=== PATIENT | female | born 1955 | race Caucasian/White ===

== ENCOUNTER 2017-07-09 14:47 | Emergency (ER) | payer OTHER ==
[2017-07-09] MEDS ORDERED: KETOROLAC 30 MG/ML INJ ONE (15:54)
[2017-07-09] MEDS ORDERED: NA CHLORIDE 0.9% 1,000 ML ONE (15:55)
[2017-07-09 16:20] LABS: Absolute Lymphocytes (CBC) 1.1 K/uL (0.7-4.9); Absolute Monocytes 0.6 K/uL (0.1-1.3); Absolute Neutrophil 6.5 K/uL (1.8-8.0); Basophils % 0.5 % (0-1.3); Eosinophils % 1.6 % (0-4.4); Hematocrit 38.8 % (36.0-45.0); Lymphocytes % 13.3 % (15.3-44.8); MCH 32.1 pg (27.0-35.0); MCV 94.4 fL (80-100); MPV 9.4 fL (7.6-11.3); Monocytes % 7.7 % (3.3-12.3); RBC Red Blood Cell Count 4.11 M/uL (3.86-4.86)
[2017-07-09 16:27] LABS: Bicarbonate 27 mEq/L (21-31); Glucose Level 110 mg/dL (65-120); Lipase 20 U/L (22-51); Potassium 3.5 mEq/L (3.6-5.0); Sodium Level 141 mEq/L (135-145)
[2017-07-09 16:33] LABS: ALT/SGPT 39 IU/L (10-60); AST/SGOT 63 IU/L (10-42); Albumin 4.6 g/dL (3.2-5.5); Alkaline Phosphatase 65 IU/L (42-121); BUN Blood Urea Nitrogen 21 mg/dL (6-20); Bilirubin Direct < 0.1 mg/dL (0-0.2); Bilirubin Total 0.4 mg/dL (0.3-1.2); Protein, Total 7.5 g/dL (6.0-8.3)
--- NOTE | 2017-07-09 17:01 | EKG ---
Test Date: 2017-07-09 Test Time: 15:10:27 Fire Controlman: SAAD MEASUREMENT RESULTS: Intervals: Rate: 87 SD: 170 QRSD: 88 QT: 340 QTc: 409 [place]: P: 59 SD: 170 QRS: 52 T: 32 INTERPRETIVE STATEMENTS: Normal sinus rhythm Nonspecific T wave abnormality Abnormal ECG No previous ECG available for comparison Electronically Signed On 07-09-17 17:01:26 CDT by Valdo Razo
--- NOTE | 2017-07-09 17:15 | RAD REPORT ---
EXAM DESCRIPTION: CT - Head C Spine Santiago Lomas - 07/09/2017 4:57 pm CLINICAL HISTORY: Trauma, head and neck injury. Chest, abdomen and pelvis pain. COMPARISON: None. TECHNIQUE: CT head without contrast. CT cervical spine without contrast with coronal and sagittal reformatted images. CT chest, abdomen and pelvis with contrast with coronal and sagittal reformatted images of the spine. All CT scans are performed using dose optimization technique as appropriate and may include automated exposure control or mA/KV adjustment according to patient size. FINDINGS: CT HEAD WITHOUT CONTRAST: No intracranial hemorrhage, hydrocephalus or extra-axial fluid collection. No areas of brain edema o r midline shift. The paranasal sinuses and mastoids are clear. The calvarium is intact. CT CERVICAL SPINE WITHOUT CONTRAST: No fracture or subluxation. 2 mm anterolisthesis of C3 on 4 and C4 on 5. Prominent degenerative spond ylosis with endplate osteophytes at C5-6. The prevertebral soft tissues are normal in thickness. CT CHEST, ABDOMEN, PELVIS WITH CONTRAST: The lungs are mildly emphysematous but clear.No pneumothorax or pericardial/pleural fluid. No evidence of intra-abdominal visceral injury, free fluid or free air. Sigmoid diverticulosis. Soft tissue bruising is present in the left buttock region. No fractures. Degenerative dextroscoliosis of the lumbar spine. IMPRESSION: Negative for acute traumatic findings.
[2017-07-09] MEDS ORDERED: POTASSIUM CL SA 10 MEQ TAB PO ONE (17:34)
--- NOTE | 2017-07-09 17:38 | EDPHYS ---
Physician Documentation [facility] Name: Latisha Fry Age: 61 yrs Sex: Female : 1955 Arrival Date: 07/09/2017 Time: 14:51 Bed 4 Private MD: ED Physician Eddi Fuentes HPI: 07/09 15:19 This 61 yrs old Female presents to ER via Ambulatory with complaints of Fall blu Injury. 15:19 Details of fall: The patient fell from a height, down approximately 10 stairs. Onset: blu The symptoms/episode began/occurred just prior to arrival. Associated injuries: The patient sustained injury to the head, neck injury, upper back injury, injury to the chest. Severity of symptoms: At their worst the symptoms were mild, in the emergency department the symptoms are unchanged. The patient has not experienced similar symptoms in the past. - Immunization history: Last tetanus immunization: - up to date. - Family history:: not pertinent. ROS: 15:19 Constitutional: Negative for fever, chills, and weight loss, Eyes: Negative for injury, blu pain, redness, and discharge, ENT: Negative for injury, pain, and discharge, Neck: Negative for injury, pain, and swelling, Cardiovascular: Negative for chest pain, palpitations, and edema, Respiratory: Negative for shortness of breath, cough, wheezing, and pleuritic chest pain, Abdomen/GI: Negative for abdominal pain, nausea, vomiting, diarrhea, and constipation, Back: Negative for injury and pain, : Negative for injury, bleeding, discharge, and swelling, Skin: Negative for injury, rash, and discoloration, Neuro: Negative for headache, weakness, numbness, tingling, and seizure, Psych: Negative for depression, anxiety, suicide ideation, homicidal ideation, and hallucinations, Allergy/Immunology: Negative for hives, rash, and allergies, Endocrine: Negative for neck swelling, polydipsia, polyuria, polyphagia, and marked weight changes, Hematologic/Lymphatic: Negative for swollen nodes, abnormal bleeding, and unusual bruising. 15:19 MS/extremity: Positive for abrasion, contusion. Exam: 15:19 Constitutional: This is a well developed, well nourished patient who is awake, alert, blu and in no acute distress. Head/Face: Normocephalic, atraumatic. Eyes: Pupils equal round and reactive to light, extra-ocular motions intact. Lids and lashes normal. Conjunctiva and sclera are non-icteric and not injected. Cornea within normal limits. Periorbital areas with no swelling, redness, or edema. ENT: Nares patent. No nasal discharge, no septal abnormalities noted. Tympanic membranes are normal and external auditory canals are clear. Oropharynx with no redness, swelling, or masses, exudates, or evidence of obstruction, uvula midline. Mucous membranes moist. Neck: Trachea midline, no thyromegaly or masses palpated, and no cervical lymphadenopathy. Supple, full range of motion without nuchal rigidity, or vertebral point tenderness. No Meningismus. Cardiovascular: Regular rate and rhythm with a normal S1 and S2. No gallops, murmurs, or rubs. Normal PMI, no JVD. No pulse deficits. Respiratory: Lungs have equal breath sounds bilaterally, clear to auscultation and percussion. No rales, rhonchi or wheezes noted. No increased work of breathing, no retractions or nasal flaring. Abdomen/GI: Soft, non-tender, with normal bowel sounds. No distension or tympany. No guarding or rebound. No evidence of tenderness throughout. Female : Normal external genitalia. Skin: Warm, dry with normal turgor. Normal color with no rashes, no lesions, and no evidence of cellulitis. Neuro: Awake and alert, GCS 15, oriented to person, place, time, and situation. Cranial nerves II-XII grossly intact. Motor strength 5/5 in all extremities. Sensory grossly intact. Cerebellar exam normal. Normal gait. Psych: Awake, alert, with orientation to person, place and time. Behavior, mood, and affect are within normal limits. 15:19 Chest/axilla: Inspection: normal, Palpation: tenderness, that is mild, of the left lateral posterior chest. 15:19 Respiratory: Exam negative for 15:19 Musculoskeletal/extremity: Extremities: abrasion, pain, ROM: intact in all extremities, full active range of motion, full passive range of motion, Circulation is intact in all extremities. Sensation intact. Compartment Syndrome exam of affected extremity: is normal. DVT Exam: No signs of deep vein thrombosis. no pain, no swelling, no tenderness, negative Homans' sign noted on exam, no appreciated bluish discoloration, no erythema, no increased warmth. Vital Signs: 15:01 BP 151 / 77; Pulse 96; Resp 20; Temp 97.9; Pulse Ox 96% on R/A; Weight 80.74 kg; Height aj 5 ft. 6 in. (167.64 cm); 15:30 BP 133 / 87; Pulse 89; Resp 16; Pulse Ox 99% ; jl7 16:23 BP 141 / 67; Pulse 71; Resp 16; Pulse Ox 99% ; jl7 15:01 Body Mass Index 28.73 (80.74 kg, 167.64 cm) aj Harmony Coma Score: 15:01 Eye Response: spontaneous(4). Verbal Response: oriented(5). Motor Response: obeys aj commands(6). Total: 15. Trauma Score (Adult): 15:01 Eye Response: spontaneous(1); Verbal Response: oriented(1); Motor Response: obeys aj commands(2); Systolic BP: > 89 mm Hg(4); Respiratory Rate: 10 to 29 per min(4); Annette Score: 15; Trauma Score: 12 MDM: 15:13 Patient medically screened. [facility] 15:22 Data reviewed: vital signs, nurses notes, lab test result(s), radiologic studies, CT [facility] scan, plain films. 07/09 15:18 Order name: Basic Metabolic Panel; Complete Time: 16:51 [facility] 07/09 15:18 Order name: CBC with Diff; Complete Time: 16:51 [facility] 07/09 15:18 Order name: Creatinine for Radiology; Complete Time: 16:51 [facility] 07/09 15:18 Order name: Type And Screen; Complete Time: 17:36 [facility] 07/09 15:18 Order name: LFT's; Complete Time: 16:51 [facility] 07/09 15:18 Order name: Lipase; Complete Time: 16:51 [facility] 07/09 15:18 Order name: XRAY Chest (1 view) [facility] 07/09 15:18 Order name: CT Traumagram (Head C Spine CAP W Con); Complete Time: 17:36 [facility] 07/09 15:19 Order name: Urine Culture [facility] 07/09 15:59 Order name: EKG Electrocardiogram EDSD 07/09 18:22 Order name: Urine Dipstick--Ancillary (enter results) 07/09 15:18 Order name: Labs collected and sent; Complete Time: 17:50 [facility] 07/09 15:18 Order name: Urine Dipstick-Ancillary (obtain specimen); Complete Time: 17:48 [facility] Administered Medications: 16:08 Drug: NS 0.9% 1000 ml Route: IV; Rate: 1 bolus; Site: right antecubital; 7 17:48 Follow up: IV Status: Completed infusion 7 16:10 Drug: TORadol 30 mg Route: IVP; Site: right antecubital; 7 17:48 Follow up: Response: No adverse reaction; Pain is decreased 7 17:35 Drug: Potassium Chloride 20 mEq Route: PO; 7 17:48 Follow up: Response: No adverse reaction [facility] Disposition: 07/09/17 17:37 Discharged to Home. Impression: Fall (on) (from) other stairs and steps, Contusion of left back wall of thorax, Contusion of thorax, Superficial injury of head, Strain of muscle, fascia and tendon at neck level, Hypokalemia. - Condition is Stable. - Discharge Instructions: Potassium Content of Foods, Head Injury, Adult, Fall Prevention and Home Safety, Thoracic Strain, Thoracic Strain, [id number], Cervical Sprain, Oyrf-ml-Udax, Head Injury, Adult, Whkk-se-Eduo, Hypokalemia. - Prescriptions for Ibuprofen 600 mg Oral Tablet - take 1 tablet by ORAL route every 8 hours As needed take with food; 21 tablet. Tylenol- Codeine #3 300-30 mg Oral Tablet - take 2 tablet by ORAL route every 6 hours As needed; 30 tablet. - Medication Reconciliation Form, Thank You Letter, Antibiotic Education, Prescription Opioid Use form. - Follow up: Private Physician; When: 2 - 3 days; Reason: Recheck today's complaints, Continuance of care, Re-evaluation by your physician. - Problem is new. - Symptoms have improved. Signatures: Dispatcher [employer] EDMS Taryn Saez RN RN aj Anderson, Corey, MD MD cha Williams, Irene, RN RN iw Gallardo, Ana ag Leal, Jahala, RN RN jl7 Corrections: (The following items were deleted from the chart) 17:59 17:37 07/09/2017 17:37 Discharged to Home. Impression: Fall (on) (from) other stairs iw and steps; Contusion of left back wall of thorax; Contusion of thorax; Superficial injury of head; Strain of muscle, fascia and tendon at neck level; Hypokalemia. Condition is Stable. Discharge Instructions: Head Injury, Adult, Fall Prevention and Home Safety, Thoracic Strain, Thoracic Strain, Ikzi-mv-Qufn, Cervical Sprain, Blgq-jg-Xpzd, Head Injury, Adult, Zspj-gz-Cvbm. Prescriptions for Ibuprofen 600 mg Oral Tablet - take 1 tablet by ORAL route every 8 hours As needed take with food; 21 tablet, Tylenol-Codeine #3 300-30 mg Oral Tablet - take 2 tablet by ORAL route every 6 hours As needed; 30 tablet. and Forms are Medication Reconciliation Form, Thank You Letter, Antibiotic Education, Prescription Opioid Use. Follow up: Private Physician; When: 2 - 3 days; Reason: Recheck today's complaints, Continuance of care, Re-evaluation by your physician. Problem is new. Symptoms have improved. [facility] 18:22 17:59 07/09/2017 17:37 Discharged to Home. Impression: Fall (on) (from) other stairs ag and steps; Contusion of left back wall of thorax; Contusion of thorax; Superficial injury of head; Strain of muscle, fascia and tendon at neck level; Hypokalemia. Condition is Stable. Discharge Instructions: Head Injury, Adult, Fall Prevention and Home Safety, Thoracic Strain, Thoracic Strain, Nziy-dp-Bdty, Cervical Sprain, Pxdy-ev-Tywq, Head Injury, Adult, Nwee-bl-Ikfa, Potassium Content of Foods, Hypokalemia. Prescriptions for Ibuprofen 600 mg Oral Tablet - take 1 tablet by ORAL route every 8 hours As needed take with food; 21 tablet, Tylenol-Codeine #3 300-30 mg Oral Tablet - take 2 tablet by ORAL route every 6 hours As needed; 30 tablet. and Forms are Medication Reconciliation Form, Thank You Letter, Antibiotic Education, Prescription Opioid Use. Follow up: Private Physician; When: 2 - 3 days; Reason: Recheck today's complaints, Continuance of care, Re-evaluation by your physician. Problem is new. Symptoms have improved. iw
--- NOTE | 2017-07-09 17:38 | ER ---
Nurse's Notes [facility] Name: Latisha Fry Age: 61 yrs Sex: Female : 1955 Arrival Date: 07/09/2017 Time: 14:51 Bed 4 Private MD: Diagnosis: Fall (on) (from) other stairs and steps;Contusion of left back wall of thorax;Contusion of thorax;Superficial injury of head;Strain of muscle, fascia and tendon at neck level;Hypokalemia Presentation: 07/09 15:01 Presenting complaint: Patient states: Reports falling 10 ft from pier onto sand at 0800 aj this AM. Patient reports back pain, lower abdominal pain, SOB that gradually increased since fall. Patient denies LOC. Care prior to arrival: None. Mechanism of Injury: Fall Pier approximately 10 feet. Trauma event details: Injury occurred in the [facility], Injury occurred: at home. Injury occurred: July 09, 2017 Injury occurred at: 08:00. 15:01 Acuity: BRENDAN 3 aj 15:01 Method Of Arrival: Ambulatory aj 15:05 Transition of care: patient was not received from another setting of care. Onset of aj symptoms was July 09, 2017. 17:58 Initial Sepsis Screen: Does the patient meet any 2 criteria? No. Patient's initial iw sepsis screen is negative. Does the patient have a suspected source of infection? No. Patient's initial sepsis screen is negative. Trauma Activation: Alert Physician: ED Physician; Name: ; Notified At: ; Arrived At: Physician: General Surgeon; Name: ; Notified At: ; Arrived At: Physician: Radiology; Name: ; Notified At: ; Arrived At: Physician: Respiratory; Name: ; Notified At: ; Arrived At: Physician: Lab; Name: ; Notified At: ; Arrived At: - Immunization history: Last tetanus immunization: - up to date. - Family history:: not pertinent. Screenin:15 Abuse screen: Denies threats or abuse. Denies injuries from another. Nutritional jl7 screening: No deficits noted. Tuberculosis screening: No symptoms or risk factors identified. 17:58 Fall Risk Fall in past 12 months (25 points). iw Primary Survey: 15:01 Breathing/Chest: Respiratory pattern: regular. Circulation: Skin color: pink, Skin aj temperature: warm, dry. Disability Alert. 15:15 Reassessment Airway Airway Patent Breathing/Chest Respiratory pattern Regular jl7 Respiratory effort Spontaneous Unlabored Breath sounds Clear Chest inspection Symmetrical Circulation Heart tones Present Disability Alert. Assessment: 15:01 General: Appears in no apparent distress. uncomfortable, Behavior is calm, cooperative, aj appropriate for age. Pain: Complains of pain in back and abdomen. Neuro: Level of Consciousness is awake, alert, obeys commands, Oriented to person, place, time, situation, Appropriate for age. Respiratory: Airway is patent Respiratory effort is even, unlabored, Respiratory pattern is regular, symmetrical. GI: Reports lower abdominal pain. Derm: Skin is intact, is healthy with good turgor, Skin is pink, warm \T\ dry. normal. Vital Signs: 15:01 BP 151 / 77; Pulse 96; Resp 20; Temp 97.9; Pulse Ox 96% on R/A; Weight 80.74 kg; Height aj 5 ft. 6 in. (167.64 cm); 15:30 BP 133 / 87; Pulse 89; Resp 16; Pulse Ox 99% ; jl7 16:23 BP 141 / 67; Pulse 71; Resp 16; Pulse Ox 99% ; jl7 15:01 Body Mass Index 28.73 (80.74 kg, 167.64 cm) aj [place] Coma Score: 15:01 Eye Response: spontaneous(4). Verbal Response: oriented(5). Motor Response: obeys aj commands(6). Total: 15. Trauma Score (Adult): 15:01 Eye Response: spontaneous(1); Verbal Response: oriented(1); Motor Response: obeys aj commands(2); Systolic BP: > 89 mm Hg(4); Respiratory Rate: 10 to 29 per min(4); [place] Score: 15; Trauma Score: 12 ED Course: 14:51 Patient arrived in ED. rg4 15:03 Triage completed. aj 15:08 Corie Strattno, ANDRES is Primary Nurse. jl7 15:13 Eddi Fuentes MD is Attending Physician. blu 15:15 Patient has correct armband on for positive identification. Placed in gown. Bed in low jl7 position. Call light in reach. Side rails up X 1. 15:15 Patient maintains SpO2 saturation greater than 95% on room air. jl7 15:21 Radiology exam delayed due to lab results not completed at this time. (BUN/Creatinine). nj 15:36 X-ray completed. Portable x-ray completed in exam room. Patient tolerated procedure kp1 well. 15:37 XRAY Chest (1 view) In Process Unspecified. EDMS 15:38 Radiology exam delayed due to lab results not completed at this time. (BUN/Creatinine). nj 16:08 Radiology exam delayed due to lab results not completed at this time. (BUN/Creatinine) nj IV insertion attempt and/or patient not having appropriate IV at this time. 16:[address] via stretcher. 16:57 CT Traumagram (Head C Spine CAP W Con) In Process Unspecified. EDMS 16:58 CT completed. Patient tolerated procedure well. Patient moved back from CT. 17:57 IV discontinued, intact, bleeding controlled, No redness/swelling at site. Pressure iw dressing applied. Thermoregulation: warm blanket given to patient. 17:57 No provider procedures requiring assistance completed. iw 17:58 IV discontinued, intact, bleeding controlled. iw Administered Medications: 16:08 Drug: NS 0.9% 1000 ml Route: IV; Rate: 1 bolus; Site: right antecubital; jl7 17:48 Follow up: IV Status: Completed infusion jl7 16:10 Drug: TORadol 30 mg Route: IVP; Site: right antecubital; jl7 17:48 Follow up: Response: No adverse reaction; Pain is decreased jl7 17:35 Drug: Potassium Chloride 20 mEq Route: PO; jl7 17:48 Follow up: Response: No adverse reaction jl7 Intake: 17:58 PO: 0ml; Total: 0ml. iw Outcome: 17:37 Discharge ordered by . blu 17:57 Discharged to home ambulatory. iw 17:57 Condition: good 17:57 Discharge instructions given to patient, family, Instructed on discharge instructions, follow up and referral plans. medication usage, Demonstrated understanding of instructions, follow-up care, medications, Prescriptions given X 2. 17:57 Patient's length of stay in the Emergency Department was greater than 2 hours. 17:59 Patient left the ED. iw 18:22 Patient left the ED. ag Signatures: Dispatcher [employer] EDMS Taryn Saez RN RN aj Anderson, Corey, MD MD cha Hagler, Ervin Nancy Lafleur RN RN Naldo, Chasidy Green4 Vitaliy Carbone Jahala, RN RN jl7 Beata Triplett kp1
[2017-07-09 18:26] LABS: Urine Blood TRACE (NEG); Urine Glucose NEGATIVE (NEG); Urine Protein NEGATIVE (NEG); Urine Specific Gravity <1.005 (1.005-1.030)
--- NOTE | 2017-07-09 18:33 | RAD REPORT ---
EXAM DESCRIPTION: Bashir Single View07/09/2017 3:38 pm CLINICAL HISTORY: Chest pain COMPARISON: none FINDINGS: The lungs appear clear of acute infiltrate. The heart is normal size IMPRESSION: No acute abnormalities displayed
== END 2017-07-09 18:22 | disposition home or self-care (01) ==
LOC: ER 14:47
DX: S20.222A Contusion of left back wall of thorax, initial encounter (principal); S16.1XXA Strain of muscle, fascia and tendon at neck level, initial encounter; E87.6 Hypokalemia; W10.9XXA Fall (on) (from) unspecified stairs and steps, initial encounter; Y93.9 Activity, unspecified; Y92.9 Unspecified place or not applicable
CPT/HCPCS: 36415; 70450; 71045; 71260; 72125; 74177; 80048; 80076; 81003; 83690; 85025; 86850; 86900; 86901; 87086; 87088; 93005; 96361; 96374; 99284; J7030; Q9967